=== PATIENT | male | born 1965 | race Caucasian/White ===

== ENCOUNTER → 2017-02-07 | Outpatient (CLI) | payer MEDICARE, OTHER ==
[~2017-02-07] MED LIST: ACETAMINOPHEN; ACETAMINOPHEN PO; ACETAMINOPHEN PR; ACETAMINOPHEN325 MG PO; ACYCLOVIR; ALBUTEROL0.83 MG/ML IH; AMITIZA; ANALGESIC BALM28 GM TP; ASPIRIN; BACLOFEN10 MG; BACLOFEN10 MG PO; BISACODYL10 MG/SUPP PR; BONIVA150 MG; BONIVA150 MG PO; CALCIUM; CALCIUM 500 MG1 EACH PO; CALCIUM PO; CARMEX; CENTRUM PO; CERTAVITE W/LUT1 TA1 PO; CIPRO250 MG PO; CLARITIN10 M2 PO; CLARITIN10 MG; FOSAMAX; GAS RELIEF40 MG/0.6 PO; GENTLE LAXATIVE10 MG RC; JUVEN; LACTULOSE10 G/15 ML PO; LEVAQUIN; LIORESAL10 MG PO; LORTAB ELIXIR15 ML PO; LOVASTATIN20 MG PO; MEVACOR PO; MEVACOR10 MG PO; MILK OF MAGNESIA PO; MIRALAX255 GM PO; MONTELUKAST SOD10 MG PO; MYLANTA400 MG; MYLICON40 MG/0.6; MYLICON40 MG/0.6 PO; NASAREL29 MCG; NEXIUM PO; OMEGA 3 FISH OI1 CAP PO; OMEGA-31000 M1 PO; PAROXETINE HCL10 MG PO; PATANOL5 ML OP; PAXIL10 MG; PAXIL10 MG PO; PREVACID PO; PREVIDENT473 ML DT; PRILOSEC20 MG PO; PROVENTIL0.83 MG/ML IH; ROBITUSSIN ALL118 ML; SENNA CONCENTR8.6 MG PO; SENNA8.8 MG/5 M PO; SENOKOT60 ML; SINGULAIR PO; VITAMIN C PO; VITAMIN D1000 UNI1 PO; VITAMIN D50000 UNIT PO; [UNRECOGNIZED DRUG - OTHER]; [UNRECOGNIZED DRUG - OTHER]; [UNRECOGNIZED DRUG - OTHER] PO; [UNRECOGNIZED DRUG - OTHER] PO; [UNRECOGNIZED DRUG - OTHER] PO; [UNRECOGNIZED DRUG - OTHER] TP
== END | disposition home or self-care (01) ==
LOC: CSSDAY 10:00
DX: M81.0 Age-related osteoporosis without current pathological fracture (principal)
CPT/HCPCS: 96372; J0897